=== PATIENT | female | born 1990 | race American Indian/Alaskan Native ===

== ENCOUNTER 2017-11-02 00:12 | Emergency (ER) | payer MEDICAID ==
[2017-11-02] MEDS ORDERED: NACL 0.9% 1000 ML 1,000 ML IV ONE (00:44)
[2017-11-02] MEDS ORDERED: KEPPRA 1,000 MG/NS 0.75% 100ML 1,000 MG/100 ML BAG IV ONE (00:54)
--- NOTE | 2017-11-02 01:23 | Emergency Department Report ---
HPI - General Chief Complaint: Seizure Time Seen by Provider: 11/02/17 00:51 - HPI HPI: The patient is a 27-year-old female who presents for evaluation of seizure. The patient has history of epilepsy. The patient presents from [place]. There were staff states that approximately 30 minutes prior to arrival the patient experience tonic-clonic severe shaking of the extremities. The patient denies pain, injury, headache, paresthesias, motor deficit. ED Past Medical Hx - Past Medical History Hx Seizures: Yes Hx Psychiatric Treatment: Yes (SCHIZO/BIPOLAR/DEPRESSION) Hx Asthma: Yes Additional medical history: . GLAUCOMA - Surgical History Additional Surgical History: GROWTH REMOVED FROM VOCAL CORDS - Social History Smoking Status: Smoker, Current Status Unknown - Medications Home Medications: Home Medications Medication Instructions Recorded Confirmed Last Taken Type LORazepam [Ativan INJ] 2 mg IV Q6H PRN #30 vial 04/26/16 Unknown Rx OLANzapine ZYDIS [ZyPREXA Zydis] 5 mg PO Q6H PRN #30 tab.rapdis 04/26/16 Unknown Rx OLANzapine [ZyPREXA] 2.5 mg PO QHS tablet 04/26/16 Unknown Rx Pantoprazole [Protonix TAB] 40 mg PO BID tablet 04/26/16 Unknown Rx Petrolatum,White [Vaseline Lip 1 applic TP Q2HR PRN #1 tube 04/26/16 Unknown Rx Therapy] Divalproex ER [Depakote ER] 500 mg PO BID #30 tablet 11/02/17 Unknown Rx ED Review of Systems ROS: Stated complaint: SEIZURES Other details as noted in HPI Constitutional: denies: fever ENT: denies: throat or neck pain Respiratory: denies: cough, shortness of breath Cardiovascular: denies: chest pain Endocrine: denies unexplained weight loss or gain Gastrointestinal: denies: abdominal pain, nausea Genitourinary: denies: dysuria Musculoskeletal: denies: leg swelling Skin: denies: rash Neurological: reports seizure denies: headache Hematological/Lymphatic: denies: easy bleeding or easy bruising Psych: denies sadness or hopelessness Physical Exam - Physical Exam Vital Signs: Vital Signs 11/02/17 11/02/17 11/02/17 00:16 00:18 00:30 Temperature 98.2 F Pulse Rate 88 87 85 Respiratory 19 20 18 Rate Blood Pressure 113/70 110/69 O2 Sat by Pulse 100 100 99 Oximetry 11/02/17 11/02/17 00:45 01:01 Temperature Pulse Rate 84 80 Respiratory 16 20 Rate Blood Pressure 110/69 110/69 O2 Sat by Pulse 99 100 Oximetry Physical Exam: General: well-nourished, well-developed, no acute distress Head: Normocephalic, atraumatic Eyes: normal sclera ENT: Mucous membranes are pink and moist Neck: trachea midline, neck supple, No neck stiffness, no cervical adenopathy Respiratory: Breath sounds equal bilaterally, no wheezing, rales, or rhonchi Cardio: S1 and S2 present, no murmurs, rubs, gallops, capillary refill is brisk Abdomen: Normoactive bowel sounds, soft abdomen, no rigidity, no guarding or rebound tenderness Chest WALL/Back: No tenderness to palpation of the chest wall, no CVA tenderness with percussion Musc: No pitting edema Skin: No rash Neuro: no facial drooping, normal speech Psych: Normal affect ED Course Vital Signs 11/02/17 11/02/17 11/02/17 00:16 00:18 00:30 Temperature 98.2 F Pulse Rate 88 87 85 Respiratory 19 20 18 Rate Blood Pressure 113/70 110/69 O2 Sat by Pulse 100 100 99 Oximetry 11/02/17 11/02/17 00:45 01:01 Temperature Pulse Rate 84 80 Respiratory 16 20 Rate Blood Pressure 110/69 110/69 O2 Sat by Pulse 99 100 Oximetry ED Medical Decision Making - Lab Data Result diagrams: 11/02/17 01:42 11/02/17 01:42 - Medical Decision Making The patient was seen and examined by myself. The patient is placed on a crucible packer and continuous pulse ox. On initial evaluation, the patient was found to be in no distress. Evaluation orders were placed. The patient is given 1 L normal saline fluid bolus. Labs unremarkable. The patient is given IV Keppra infusion for treatment of her seizure. The patient months in the emergency department for greater than 3 hours without any seizure-like activity. The patient was reevaluated and reported that their symptoms were markedly improved. The patient is stable for discharge with outpatient follow-up. The patient is given follow-up and return instructions. The patient expressed understanding and agreed with the plan. The patient is discharged in stable condition. Critical care attestation.: If time is entered above; I have spent that time in minutes in the direct care of this critically ill patient, excluding procedure time. ED Disposition Clinical Impression: Dehydration, mild Seizure Qualifiers: Convulsion type: unspecified Qualified Code(s): R56.9 - Unspecified convulsions Disposition: TO HOME OR SELFCARE Is pt being admited?: No Does the pt Need Aspirin: No Condition: Stable Instructions: Epilepsy (ED) Prescriptions: Divalproex ER [Depakote ER] 500 mg PO BID #30 tablet Referrals: LM ARIAS MD [Primary Care Provider] - 3-5 Days Time of Disposition: 02:55
[2017-11-02 01:47] LABS: Hematocrit 36.7 % (30.3-42.9); Hemoglobin 11.7 gm/dl (10.1-14.3); Mean Corpuscular HGB Conc 32 % (30-34); Mean Corpuscular Volume 74 fl (79-97); Platelet Count 238 K/mm3 (140-440); Red Blood Count 4.95 M/mm3 (3.65-5.03)
[2017-11-02 01:48] LABS: Mean Corpuscular Hemoglobin 24 pg (28-32); Red Cell Distribution Width 22.7 % (13.2-15.2)
[2017-11-02 02:04] LABS: Alanine Aminotransferase 7 units/L (7-56); Albumin 3.6 g/dL (3.9-5); BUN/Creatinine Ratio 10; Blood Urea Nitrogen 5 mg/dL (7-17); Calcium 8.5 mg/dL (8.4-10.2); Hemolysis Index 4
[2017-11-02 03:12] LABS: Basophils % (Manual) 0 % (0.0-1.8); Total Cells Counted 100
[2017-11-02 03:13] LABS: Anisocytosis 1+
[2017-11-02 03:14] LABS: Platelet Estimate Consistent w Auto
[2017-11-02 03:33] VITALS: BP 105/64
== END 2017-11-02 04:34 | disposition home or self-care (01) ==
LOC: ED 00:12
DX: R56.9 Unspecified convulsions (principal); E86.0 Dehydration; I10 Essential (primary) hypertension; J45.909 Unspecified asthma, uncomplicated; F17.200 Nicotine dependence, unspecified, uncomplicated
CPT/HCPCS: 36415; 80053; 80164; 82140; 82550; 84703; 85007; 85025; 93005; 93010; 99284; J1953; J7030